=== PATIENT | female | born 1985 | race Caucasian/White ===

== ENCOUNTER 2017-01-02 11:40 | Observation (INO) | payer MEDICAID ==
[2017-01-02] MEDS ORDERED: PREN-96 PO (16:59)
== END 2017-01-02 13:40 | disposition home or self-care (01) | DRG 566 ==
LOC: LDRP 11:40
PROVIDERS: ADMIT Obstetrics & Gynecology; ATTEND Obstetrics & Gynecology
DX: O48.0 Post-term pregnancy (principal); Z3A.40 40 weeks gestation of pregnancy
CPT/HCPCS: 59025; 76818; 81002; G0378